=== PATIENT | female | born 1975 | race African-American/Black ===

== ENCOUNTER 2018-04-17 21:25 | Emergency (ER) | payer OTHER ==
[~2018-04-17] VITALS: Ht 180.3 cm; Wt 130.9 kg
[~2018-04-17 21:25] MED LIST: INDOCIN50 MG PO
[2018-04-17 21:59] LABS: HEMATOCRIT 36.2 % (36.0-46.0); HEMOGLOBIN 12.2 G/DL (11.9-15.5); MCH 28.8 PG (29.0-34.0); MCHC 33.7 G/DL (30.0-36.0); MCV 85.6 FL (83-99); PLATELET COUNT 198 K/uL (156-360); RBC DIS.WIDTH-CV 13.1 % (11.8-14.6); RBC DIS.WIDTH-SD 40.3 % (39-53); RED BLOOD COUNT 4.23 M/uL (3.80-5.20)
[2018-04-17 22:08] LABS: CHLORIDE 105 mEq/L (99-109); POTASSIUM 3.6 mEq/L (3.7-5.4); SODIUM 139 mEq/L (136-147)
[2018-04-17 22:10] LABS: GLUCOSE 154 mg/dL (70-99)
[2018-04-17 22:14] LABS: CREATININE 0.8 mg/dL (0.6-1.3); GFR ESTIMATE (CALCULATED) > 59 mL/min/
[2018-04-17 22:15] LABS: UREA NITROGEN (BUN) 11 mg/dL (9-23)
[2018-04-17 22:20] LABS: TROP-I INTERPRETATION NEGATIVE; TROPONIN-I < 0.01 ng/mL (0.0-0.30)
[2018-04-18 00:01] VITALS: BP 142/88
== END 2018-04-18 00:01 | disposition home or self-care (01) ==
LOC: EME 21:25
PROVIDERS: Emergency Medicine
DX: E86.0 Dehydration (principal); R55 Syncope and collapse
CPT/HCPCS: 80048; 82948; 84484; 85027; 93005; 99281; 99284; J7030